=== PATIENT | male | born 1965 | race Caucasian/White ===

== ENCOUNTER 2020-02-10 11:10 | Emergency (ER) | payer MEDICAID, OTHER ==
[~2020-02-10] VITALS: Ht 180 cm; Wt 119.0 kg
--- NOTE | 2020-02-10 11:18 | ED Lower Extremity ---
General Stated Complaint: BACK PAIN;RT LEG PAIN Source: patient History of Present Illness Date Seen by Provider: February 10, 2020 Time Seen by Provider: 11:18 Initial Comments 54-year-old male presents with concerns for leg clot in his right leg. Patient reports that he was that his pain management physician this morning. That they were concerned he possibly might have a blood clot in his right leg because he is got some bruising in the upper part of his right leg and some pain. He reports he's got some swelling in the right lower leg. He has some minor Pain. The pain clinic requests that he contact his primary care provider however his primary care provider is a different town today. He then presented to the ER. Patient with no other acute complaints. Patient does have chronic back pain with scattered can his right leg. However he is being managed by a pain specialist for this. Allergies and Home Medications Allergies Coded Allergies: adhesive tape (Verified Allergy, Unknown, 02/10/20) iodine (Verified Allergy, Unknown, nausea and vomiting, 02/10/20) latex (Verified Allergy, Unknown, 02/10/20) propoxyphene (Verified Allergy, Unknown, nausea and vomiting, 02/10/20) Patient Home Medication List Home Medication List Reviewed: Yes Review of Systems Constitutional: No chills, No fever EENTM: no symptoms reported Respiratory: no symptoms reported Cardiovascular: no symptoms reported Musculoskeletal: see HPI Skin: see HPI Past [id number] Hx Past Med/Social Hx: Reviewed Nursing Past Med/Soc Hx Physical Exam Vital Signs Vital Signs - First Documented 02/10/20 11:26 Temp 37.3 Pulse 88 Resp 20 B/P (MAP) 187/97 (127) Pulse Ox 96 O2 Delivery Room Air Capillary Refill : Height, Weight, BMI Height: '" Weight: lbs. oz. kg; BMI Method: General Appearance: WD/WN, no apparent distress Cardiovascular: regular rate, rhythm Respiratory: no respiratory distress Gastrointestinal: soft Hips: bilateral hip non-tender Legs: right leg soft tissue tenderness (mild lower extremity tenderness. 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 Discussed the patient the need to follow-up with his primary care provider and his pain careers counsellor for further management of his chronic right leg pain in other chronic medical conditions. Patient will be discharged home in stable condition. Departure Impression Primary Impression: Pain of right lower extremity Additional Impression: Chronic back pain Qualified Codes: M54.9 - Dorsalgia, unspecified; G89.29 - Other chronic pain Disposition: 01 HOME, SELF-CARE Condition: Stable Departure-Patient Inst. Referrals: LIZZ HOBBS DO (PCP/Family) Primary Care Physician Patient Instructions: Radiculopathy (DC) Add. Discharge Instructions: Topical lidocaine with menthol or capsaicin to affected area Follow-up with your painter helper sign and primary care provider for further management of your chronic pain and medical conditions Emergency department focuses on treating and ruling out life-threatening diseases. Whenever possible, a diagnosis is given. However, most patients are given an impression based on their history, physical exam, and workup during your brief time in the ER. Information about probable diagnosis and other educational material has been provided. Please take the time to read and understand this information. It is very important that you follow up with a physician as discussed during the visit today. Failure to adhere to your follow-up instructions may lead to severe disability, injury, or so please make sure to keep your appointments or obtain one as requested. Please keep in mind the emergency department is not designed to your primary care or "family doctor" and nonurgent issues are best evaluated by an outpatient physician ADRLIN NUR DO February 10, 2020 11:18
[2020-02-10 11:50] VITALS: BP 187/97
--- NOTE | 2020-02-10 12:00 | Diagnostic Imaging Report ---
PROCEDURE: US right lower extremity venous. TECHNIQUE: Multiple real-time grayscale images were obtained over the right lower extremity in various projections. Additional spectral analysis and color Doppler duplex images were also obtained. INDICATION: Right leg pain and swelling. There is no evidence of right lower extremity DVT. Right lower extremity deep venous system shows normal compressibility with normal response to augmentation of Valsalva. No fluid collection or mass is detected. IMPRESSION: No evidence of right lower extremity DVT. Dictated by: Dictated on workstation # [id number]
--- NOTE | 2020-02-10 12:01 | NUR ---
PT INFORMED THIS RN THAT [facility] DOESNT WORK FOR HIM AND HE "IS ABOUT DONE WITH THEM AT THE [facility] IN " HE ALSO STATED HE WAS JUST GONNA GO ON OVER TO THE HOSPITAL IN [place] NOW.
--- NOTE | 2020-02-10 12:08 | NUR ---
[facility] was called at this time to notify them that the patient stated he was headed to them. They thanked us for calling them and notifying them about the patient.
== END 2020-02-10 11:57 | disposition home or self-care (01) ==
LOC: EDUNIT# 11:10 → ER FS 11:13
DX: M79.661 Pain in right lower leg (principal); G89.29 Other chronic pain; M54.9 Dorsalgia, unspecified; Z88.8 Allergy status to other drugs, medicaments and biological substances; Z91.040 Latex allergy status